=== PATIENT | male | born 1985 | race Caucasian/White ===

== ENCOUNTER 2017-03-12 18:57 | Emergency (ER) | payer OTHER ==
[2017-03-12] MEDS ORDERED: PROAIR HFA8.5 GM INH (19:11)
[2017-03-12] MEDS ORDERED: KEPPRA500 MG PO (19:11)
[2017-03-12] MEDS ORDERED: SERTRALINE HCL100 MG PO (19:11)
== END 2017-03-12 20:31 | disposition home or self-care (01) ==
LOC: ED 18:57
DX: S02.2XXA Fracture of nasal bones, initial encounter for closed fracture (principal); F32.9 Major depressive disorder, single episode, unspecified; F41.9 Anxiety disorder, unspecified; Y04.8XXA Assault by other bodily force, initial encounter; Z87.891 Personal history of nicotine dependence; Z79.899 Other long term (current) drug therapy
CPT/HCPCS: 70450; 70486; 99284